=== PATIENT | female | born 1940 | race Hispanic/Latino ===

== ENCOUNTER 2017-07-29 08:04 | Emergency (ER) | payer MEDICARE, OTHER ==
[~2017-07-29] VITALS: Ht 149.9 cm; Wt 67.1 kg
[2017-07-29] MEDS ORDERED: ACETAMINOPHEN 325 MG TAB PO ONE (09:15)
[2017-07-29] MEDS ORDERED: DIPHTH/TETANUS/ACEL. PERTUSSIS 0.5 ML SYR IM ONE (09:30)
[2017-07-29 10:57] VITALS: BP 140/80
== END 2017-07-29 09:15 | disposition home or self-care (01) ==
LOC: FSED 08:04
DX: S01.01XA Laceration without foreign body of scalp, initial encounter (principal); W06.XXXA Fall from bed, initial encounter; Y92.002 Bathroom of unspecified non-institutional (private) residence as the place of occurrence of the external cause; S00.90XA Unspecified superficial injury of unspecified part of head, initial encounter
CPT/HCPCS: 99282

== ENCOUNTER 2017-08-04 09:09 | Emergency (ER) | payer MEDICARE, OTHER ==
[~2017-08-04] VITALS: Ht 149.9 cm; Wt 66.2 kg
--- OUTSIDE RECORDS SUMMARY | 2017-08-04 09:11 | XMS REPORT | Continuity of Care Document ---
Author Author [facility] Organization 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 No 07/27/14 3:16pm If yes, is advance directive on file with [facility]? No 07/27/14 3:16pm If not on file with [facility] will patient provide a copy? No 07/27/14 3:16pm Do you have a Directive to Physician? No 07/29/17 9:02am Do you have a Medical Power of Laborer [employer] Plant? No 07/29/17 9:02am Do you have an out of hospital Do Not Resuscitate Order? No 07/29/17 9:02am Do you have any special needs we should be aware of? No 07/29/17 9:02am Do you have a support person here with you today? Yes 07/29/17 9:02am Did patient receive Notice of Privacy Practices? Yes 07/29/17 9:02am Did patient receive patient rights and responsibilities? Yes 07/29/17 9:02am Problems No problem information available. Medications No medication information available. Social History Smoking Status Start Date Stop Date Never Smoker Hospital Discharge Instructions No hospital discharge instruction information available. Plan of Care Discharge Date 07/29/17 9:15am Disposition HOME, SELF-CARE Condition at Discharge Stable Instructions/Education Provided Stitches and Farhan Care Forms Provided Work/School Excuse Prescriptions See Medication Section Additional Instructions/Education Keep scalp clean and dry x 24 hours, then you may wash your hair, as per your normal routine. Apply anitbiotic ointment to the laceration twice daily, until return for staple remover. Acetaminophen 500 mg - 2 tabs every 4 hours as needed, for pain. Follow-up here in 7 days, for staple remover. Return sooner, if there is concern for infection. Functional Status No functional status information available. Allergies, Adverse Reactions, Alerts No known allergies. Immunizations No immunization information available. Vital Signs Acute Vital Signs Vital Response Date/Time Pulse Pulse Rate (adult) 74 bpm (60 - 90) 07/29/2017 10:57am Respiratory Rate 16 bpm (12 - 24) 07/29/2017 10:57am Blood Pressure 140/80 mm Hg 07/29/2017 10:57am Height 4 ft 11 in 07/29/2017 8:30am Weight 148 lb 07/29/2017 8:30am Body Mass Index 29.9 kg/m^2 07/29/2017 8:30am Results No relevant diagnostic test, laboratory data and/or discharge summary information available. Procedures No procedure information available. Encounters Encounter Location Arrival/Admit Date Discharge/Depart Date Attending Provider Departed Emergency Room [facility] 07/29/17 8:04am 9:15am JOHNNY MUSTAFA MD
[2017-08-04 09:43] VITALS: BP 165/82
== END 2017-08-04 09:45 | disposition home or self-care (01) ==
LOC: FSED 09:09
DX: Z48.02 Encounter for removal of sutures (principal)
CPT/HCPCS: 99282

== ENCOUNTER → 2019-12-08 | Outpatient (CLI) | payer MEDICARE, OTHER ==
--- NOTE | 2019-12-08 08:53 | Diagnostic Imaging Report ---
Abdominal Ultrasound Clinical Diagnosis: Nausea, vomiting, bloating Comparison: None Technique: Multiple transaxial and longitudinal images were obtained through the abdomen with real time ultrasonography. A low-frequency curvilinear transducer was utilized. Multiple images were submitted for interpretation. Report: Liver: The liver measures 11.4 cm in the right midaxillary line. There are no focal masses or abnormal cysts. The echogenicity is within normal limits. Spleen: The spleen measures 8.2 cm in the left mid axillary line. There are no focal masses or cysts. Gallbladder: The transverse diameter is within normal limits. The wall measures 3 mm. There are no shadowing stones visualized. There is no sludge visualized. Sonographic Whitley's sign is negative. Biliary tree: There is no evidence of intra or extra hepatic biliary ductal dilatation. The common bile duct measures 3 mm. Portal vein: The portal vein measures 6 mm. There is hepatopedal flow. Hepatic veins: Unremarkable. Pancreas: The pancreatic tail is not well seen secondary to overlying bowel gas. The remainder of the pancreas shows normal echotexture and no focal masses or cysts. There is no pancreatic duct dilatation. Ascites: Absent Pleural Effusion: Absent Right kidney: The right kidney measures 9.1 x 3.8 x 3 cm. There is no evidence of hydronephrosis, mass. There is a midpole or cyst that measures 1.3 x 1.2 x 1.2 cm and appears to be a simple cyst. Left kidney: The left kidney measures 8.3 x 5.2 x 4.4 cm. There is no evidence of hydronephrosis, mass, cyst. IVC/Aorta: Partially seen segments demonstrate no abnormality. A focal examination of the right lower quadrant area of pain reveals no significant abnormality. Impression: Bilaterally small kidneys. Correlation with clinical and laboratory data is recommended. No other significant abnormality on this exam. Signed by: Frank More MD on 12/08/2019 8:50 AM
== END ==
LOC: US 07:43
PROVIDERS: ATTEND Internal Medicine Gastroenterology
DX: R11.2 Nausea with vomiting, unspecified (principal); R10.10 Upper abdominal pain, unspecified; R14.0 Abdominal distension (gaseous); R14.2 Eructation
CPT/HCPCS: 76700

== ENCOUNTER → 2021-06-28 | Outpatient (CLI) | payer MEDICARE, OTHER | LOC: MAMMO 09:02 | PROVIDERS: ATTEND Family Medicine | DX: Z12.31 Encounter for screening mammogram for malignant neoplasm of breast (principal) | CPT/HCPCS: 77067 ==